=== PATIENT | female | born 1950 | race Caucasian/White ===

== ENCOUNTER 2018-08-19 19:47 | Emergency (ER) | payer MEDICARE, OTHER ==
[~2018-08-19] VITALS: Ht 149.9 cm; Wt 84.4 kg
[~2018-08-19 19:47] MED LIST: ATOR10TA GT; ESOM40CA PO; LEVO100T9 PO; LISI-603 PO; SERT50TA12 PO; SILV400C TP; TRAM50TA2 PO; VIT1TABL66 PO; ZOLP5TAB8 PO
--- NOTE | 2018-08-19 20:24 | NUR ---
BIB FAMILY W/ C/O THROAT PAIN, VOMITING AND COUGH FOR THE PAST FEW DAYS.
[2018-08-19] MEDS ORDERED: IBUPROFEN 600 MG TABLET PO ONE (20:48)
[2018-08-19] MEDS ORDERED: MECLIZINE HCL 12.5 MG TABLET ONE (20:48)
[2018-08-19] MEDS: MECLIZINE HCL 12.5 MG TABLET PO ONE (20:51)
[2018-08-19] MEDS: IBUPROFEN 600 MG TABLET PO ONE (20:51)
--- NOTE | 2018-08-19 21:42 | NUR ---
Patient discharged to home in stable condition. Written and verbal after care instructions given. Patient verbalizes understanding of instruction. pt walked out w/ steady gate. no dizziness
[2018-08-19 21:43] VITALS: BP 131/79
== END 2018-08-19 21:46 | disposition home or self-care (01) ==
LOC: ER 19:54
DX: J02.8 Acute pharyngitis due to other specified organisms (principal); H83.01 Labyrinthitis, right ear; R42 Dizziness and giddiness; I10 Essential (primary) hypertension; E78.5 Hyperlipidemia, unspecified; E03.9 Hypothyroidism, unspecified; M19.90 Unspecified osteoarthritis, unspecified site; F17.200 Nicotine dependence, unspecified, uncomplicated; Z79.899 Other long term (current) drug therapy
CPT/HCPCS: 71045; 93005; 99283; J8597